=== PATIENT | male | born 1945 | race Caucasian/White ===

== ENCOUNTER → 2017-03-21 | Outpatient (CLI) | payer OTHER ==
--- NOTE | 2017-03-21 09:41 | RAD ---
Right shoulder radiograph 03/21/2017 at 0922 hours Indication: Right shoulder pain for 6 years Technique: 4 views of the right shoulder are provided. Comparison: None available Findings: There is no acute fracture or dislocation. There is significant joint space narrowing with osteophytosis along the humeral head and glenoid. Ossific bodies are noted in the superior joint space. Calcification along the superolateral humeral head could predispose to calcific tendinitis. No significant soft tissue mass is identified. Bone mineralization is within normal limits. Visualized portions of the right lung are clear. Postsurgical changes are noted in the lower neck. Impression: 1. No acute fracture or dislocation. 2. Advanced osteoarthrosis of the glenohumeral joint with ossific bodies noted in the superior joint space. 3. Calcification along the superolateral humeral head could predispose to calcific tendinitis.
== END | disposition home or self-care (01) ==
LOC: DXRAD 08:36
PROVIDERS: ATTEND Orthopaedic Surgery
DX: M19.011 Primary osteoarthritis, right shoulder (principal); M25.811 Other specified joint disorders, right shoulder
CPT/HCPCS: 73030